=== PATIENT | male | born 1985 | race Caucasian/White ===

== ENCOUNTER 2019-01-10 09:54 | Emergency (ER) | payer SELFPAY ==
[~2019-01-10] VITALS: Ht 167.6 cm; Wt 102.7 kg
[2019-01-10] MEDS ORDERED: DiphenhydrAMINE HCL 50 MG/ML VIAL IVP ONE (10:30)
[2019-01-10] MEDS ORDERED: METOCLOPRAMIDE HCL 5 MG/ML 2 ML VIAL IVP ONE (10:30)
[2019-01-10] MEDS ORDERED: KETOROLAC TROMETHAMINE 30 MG/ML VIAL IVP ONE (10:30)
[2019-01-10] MEDS ORDERED: SODIUM CHLORIDE 0.9% 1,000 ML IV ONE (10:30)
[2019-01-10 11:15] VITALS: BP 109/70
== END 2019-01-10 11:43 | disposition home or self-care (01) ==
LOC: EMS 09:56
DX: R51 Headache (principal); R10.13 Epigastric pain; F17.210 Nicotine dependence, cigarettes, uncomplicated; F12.90 Cannabis use, unspecified, uncomplicated
CPT/HCPCS: 96374; 96375; 99283; 99406; J1200; J1885; J2765; J7030

== ENCOUNTER 2020-03-09 03:39 | Emergency (ER) | payer MEDICAID ==
[~2020-03-09] VITALS: Ht 167.6 cm; Wt 95.5 kg
[2020-03-09] MEDS ORDERED: SODIUM CHLORIDE 0.9% 1,000 ML IV ONE (04:17)
[2020-03-09] MEDS ORDERED: ONDANSETRON HCL 4 MG/2 ML VIAL IVP ONE (04:30)
[2020-03-09 04:39] LABS: BASOPHILS % (AUTO) 1.1 % (0.0-2.0); EOSINOPHILS % (AUTO) 1.6 % (1.0-6.0); HEMATOCRIT 46.3 % (41-53); HEMOGLOBIN 16.2 g/dL (13.5-17.5); LYMPHOCYTES # (AUTO) 1.7 K/uL (1.0-4.8); LYMPHOCYTES % (AUTO) 24.3 % (22.0-44.0); MEAN CORPUSCULAR HEMOGLOBIN 30.6 pg (26.0-34.0); MEAN CORPUSCULAR HGB CONC 34.9 G/dL (31.0-37.0); MEAN CORPUSCULAR VOLUME 88 fL (80-100); MONOCYTES # (AUTO) 0.6 K/uL (0.1-1.0); MONOCYTES % (AUTO) 8.2 % (2.0-9.0); NEUTROPHILS # (AUTO) 4.6 K/uL (1.8-7.7); NEUTROPHILS % (AUTO) 64.8 % (40.0-70.0); PLATELET COUNT (AUTO) 268 K/uL (150-450); RED BLOOD CELL COUNT(AUTO) 5.28 MIL/uL (4.50-5.90); RED CELL DISTRIBUTION WIDTH 12.9 % (11.5-14.5)
[2020-03-09 04:41] LABS: ANION GAP 7 mmol/L (8-16); CALCIUM, TOTAL 9.6 mg/dL (8.8-10.5); CARBON DIOXIDE 30 mmol/L (22-29); CHLORIDE 101 mmol/L (98-107); CREATININE 1.25 mg/dL (0.60-1.30); GLOMERULAR FILTR. RATE CALC > 60 mL/min (>60); GLUCOSE,RANDOM 115 mg/dL (70-110); POTASSIUM 3.9 mmol/L (3.5-5.1); SODIUM SERUM 138 mmol/L (136-145); UREA NITROGEN, BLOOD 18 mg/dL (7-18)
[2020-03-09 04:48] LABS: ALANINE AMINOTRANSFERASE 156 U/L (12-78); ALBUMIN 4.5 g/dL (3.4-5.0); ALKALINE PHOSPHATASE 67 U/L (46-116); ASPARTATE AMINOTRANSFERASE 65 U/L (15-37); BILIRUBIN,TOTAL 1.2 mg/dL (0.1-1.0); LIPASE 156 U/L (73-393); TOTAL PROTEIN, SERUM 8.5 g/dL (6.4-8.2)
[2020-03-09 04:58] LABS: APPEARANCE,URINE CLEAR (CLEAR); BILIRUBIN,URINE NEGATIVE (NEGATIVE); GLUCOSE, URINE (UA) NEGATIVE (NEGATIVE); KETONES,URINE NEGATIVE (NEGATIVE); LEUKOCYTE ESTERASE ,URINE NEGATIVE (NEGATIVE); NITRATE,URINE NEGATIVE (NEGATIVE); OCCULT BLOOD,URINE MODERATE (NEGATIVE); PH,URINE 5.5 (5.0-8.0); PROTEIN,URINE TRACE (NEGATIVE); UROBILINOGEN,URINE 0.2 mg/dL (<=1.0)
[2020-03-09 05:01] LABS: BACTERIA,URINE Rare /HPF (None Seen); SQUAMOUS EPITHELIAL CELL,UR Few /LPF (None Seen); WBC,URINE 0-2 /HPF (0-5)
[2020-03-09] MEDS ORDERED: PB/HYOSCY/ATR/SCOP/LIDO/MAALOX 55 ML BOTTLE PO ONE (05:15)
[2020-03-09] MEDS ORDERED: KETOROLAC TROMETHAMINE 30 MG/ML VIAL IVP ONE (06:00)
[2020-03-09 06:45] VITALS: BP 127/79
== END 2020-03-09 06:52 | disposition home or self-care (01) ==
LOC: EMS 03:39
DX: R10.11 Right upper quadrant pain (principal); R11.2 Nausea with vomiting, unspecified; Z87.891 Personal history of nicotine dependence
CPT/HCPCS: 36415; 76705; 80053; 81001; 83690; 85025; 96361; 96374; 96375; 99284; J1885; J2405; J7030

== ENCOUNTER 2023-02-12 07:55 | Emergency (ER) | payer MEDICAID ==
[~2023-02-12] VITALS: Ht 177.8 cm; Wt 100.0 kg
[2023-02-12 07:57] VITALS: TEMP 97.9
[2023-02-12 08:41] VITALS: BP 157/99; PULSE 78; RESP 18
[2023-02-14] MEDS ORDERED: ESOM20CA31 PO (08:02)
[2023-02-14] MEDS ORDERED: ONDA-104 PO (10:47)
== END 2023-02-12 10:03 | disposition left against medical advice (07) ==
LOC: EMS 07:57
DX: R10.12 Left upper quadrant pain (principal); R11.2 Nausea with vomiting, unspecified; Z53.21 Procedure and treatment not carried out due to patient leaving prior to being seen by health care provider
CPT/HCPCS: 99281; Z7502

== ENCOUNTER 2024-01-12 08:23 | Inpatient (IN) | payer MEDICAID ==
[~2024-01-12] VITALS: Ht 175.3 cm; Wt 114.0 kg
[~2024-01-12 08:23] MED LIST: CITA-108 PO; ERGO500093 PO; ESOM20CA31 PO; ONDA-104 PO; TRIA15CR49 TP
[2024-01-12] MEDS: FAMOTIDINE 20 MG/2 ML VIAL IVP ONE (08:46)
[2024-01-12] MEDS: KETOROLAC TROMETHAMINE 30 MG/ML VIAL IVP ONE (08:47)
[2024-01-12] MEDS: ONDANSETRON HCL 4 MG/2 ML VIAL IVP ONE (08:50)
[2024-01-12] MEDS: MORPHINE SULFATE 2 MG/ML SYRINGE IVP ONE ×2 (08:52→11:21)
[2024-01-12] MEDS: MAG HYDROX/ALUMINUM HYD/SIMETH 30 ML SUSPENSION UDCUP PO ONE (08:56)
[2024-01-12 08:57] LABS: BASOPHILS % (AUTO) 0.7 % (0.0-2.0); EOSINOPHILS % (AUTO) 0.9 % (1.0-6.0); HEMATOCRIT 48.6 % (41-53); HEMOGLOBIN 16.7 g/dL (13.5-17.5); LYMPHOCYTES # (AUTO) 1.9 K/uL (1.0-4.8); LYMPHOCYTES % (AUTO) 27.7 % (22.0-44.0); MEAN CORPUSCULAR HEMOGLOBIN 30.2 pg (26.0-34.0); MEAN CORPUSCULAR HGB CONC 34.4 G/dL (31.0-37.0); MEAN CORPUSCULAR VOLUME 88 fL (80-100); MONOCYTES # (AUTO) 0.5 K/uL (0.1-1.0); MONOCYTES % (AUTO) 6.8 % (2.0-9.0); NEUTROPHILS # (AUTO) 4.5 K/uL (1.8-7.7); NEUTROPHILS % (AUTO) 63.9 % (40.0-70.0); PLATELET COUNT (AUTO) 240 K/uL (150-450); RED BLOOD CELL COUNT(AUTO) 5.53 MIL/uL (4.50-5.90); RED CELL DISTRIBUTION WIDTH 12.9 % (11.5-14.5)
[2024-01-12] MEDS ORDERED: IOHEXOL 350 MG/ML 100 ML VIAL ONE (08:59)
[2024-01-12] MEDS ORDERED: SODIUM CHLORIDE 0.9% 100 ML ONE (08:59)
[2024-01-12 09:07] LABS: ANION GAP 15 mmol/L (8-16); CALCIUM, TOTAL 10.5 mg/dL (8.8-10.5); CARBON DIOXIDE 25 mmol/L (22-29); CHLORIDE 100 mmol/L (98-107); CREATININE 1.06 mg/dL (0.60-1.30); GLOMERULAR FILTR. RATE CALC > 60 mL/min (>60); GLUCOSE,RANDOM 138 mg/dL (70-110); POTASSIUM 3.3 mmol/L (3.5-5.1); SODIUM SERUM 140 mmol/L (136-145); UREA NITROGEN, BLOOD 19 mg/dL (7-18)
[2024-01-12 09:09] LABS: ALCOHOL, BLOOD (SERUM) < 3 mg/dL (0-10)
[2024-01-12 09:14] LABS: TROPONIN I-HIGH SENSITIVITY 5 ng/L (<76)
[2024-01-12 09:18] LABS: B-TYPE NATRIURETIC PEPTIDE < 5 pg/mL (0-100)
[2024-01-12 09:19] LABS: LACTIC ACID 3.3 mmol/L (0.4-2.0)
[2024-01-12] MEDS: SODIUM CHLORIDE 0.9% 1,000 ML IV ONE ×3 (09:29→12:39)
[2024-01-12 09:32] LABS: ALANINE AMINOTRANSFERASE 39 U/L (12-78); ALKALINE PHOSPHATASE 80 U/L (46-116); ASPARTATE AMINOTRANSFERASE 25 U/L (15-37); BILIRUBIN,TOTAL 1.4 mg/dL (0.1-1.0); CREATINE KINASE, TOTAL ONLY 147 U/L (39-308); LIPASE 63 U/L (16-77); TOTAL PROTEIN, SERUM 8.9 g/dL (6.4-8.2)
[2024-01-12 11:15] LABS: APPEARANCE,URINE CLEAR (CLEAR); BILIRUBIN,URINE NEGATIVE (NEGATIVE); COLOR,URINE COLORLESS (YELLOW); GLUCOSE, URINE (UA) NEGATIVE (NEGATIVE); KETONES,URINE 40-60 mg/dL (NEGATIVE); LEUKOCYTE ESTERASE ,URINE NEGATIVE (NEGATIVE); NITRATE,URINE NEGATIVE (NEGATIVE); OCCULT BLOOD,URINE SMALL (NEGATIVE); PH,URINE 6.5 (5.0-8.0); PH,URINE DRUG SCREEN 6.5 (5.0-8.0); PROTEIN,URINE NEGATIVE (NEGATIVE); SPECIFIC GRAVITIY, URINE 1.034 (1.003-1.030); UROBILINOGEN,URINE <=1.0 mg/dL (<=1.0)
[2024-01-12] MEDS: DiphenhydrAMINE HCL 50 MG/ML VIAL IVP ONE (11:21)
[2024-01-12] MEDS: METOCLOPRAMIDE HCL 5 MG/ML 2 ML VIAL IVP ONE (11:21)
[2024-01-12 11:22] LABS: ALCOHOL, URINE DRUG SCREEN NEGATIVE (NEGATIVE); AMPHET/METH SCREEN,URINE NEGATIVE (NEGATIVE); BARBITURATE SCREEN, URINE NEGATIVE (NEGATIVE); BENZODIAZEPINES SCREEN,URINE NEGATIVE (NEGATIVE); CANNABINOID SCREEN,URINE POSITIVE (NEGATIVE); COCAINE SCREEN,URINE NEGATIVE (NEGATIVE); METHADONE SCREEN, URINE NEGATIVE (NEGATIVE); OPIATE SCREEN,URINE POSITIVE (NEGATIVE); PHENCYCLIDINE SCREEN,URINE NEGATIVE (NEGATIVE)
[2024-01-12 12:06] LABS: BACTERIA,URINE None Seen /HPF (None Seen); RBC,URINE 0-2 /HPF (0-2); WBC,URINE None Seen /HPF (0-5)
[2024-01-12] MEDS ORDERED: MAGNESIUM HYDROXIDE SUSPENSION 30 ML UDCUP PO PRN (12:30)
[2024-01-12] MEDS ORDERED: FLUT16H NASAL (12:33)
[2024-01-12] MEDS ORDERED: BUSP10TA3 PO (12:33)
[2024-01-12] MEDS ORDERED: PRAZ1 PO (12:33)
[2024-01-12] MEDS: SODIUM CHLORIDE 0.9% 1,000 ML IV SCH (13:27)
[2024-01-12] MEDS: MetroNIDAZOLE 500 MG/NACL 100 ML IV ONE (13:41)
[2024-01-12] MEDS: CIPROFLOXACIN 400 MG/D5% WATER 200 ML IV ONE (14:43)
[2024-01-12] MEDS: ONDANSETRON HCL 4 MG/2 ML VIAL IVP PRN (16:33)
[2024-01-12] MEDS: LORazepam 2 MG/ML VIAL IVP PRN (18:26)
[2024-01-12] MEDS: ACETAMINOPHEN 325 MG TABLET PO PRN (18:26)
[2024-01-12] MEDS: POTASSIUM CHLORIDE 20 MEQ ER TABLET PO PRN (22:25)
[2024-01-13] MEDS: METOCLOPRAMIDE HCL 5 MG/ML 2 ML VIAL IVP ONE (01:04)
[2024-01-13] MEDS ORDERED: PANTOPRAZOLE SODIUM 40 MG/VIAL IVP ONE (06:15)
[2024-01-13 06:27] VITALS: BP 137/77; PULSE 61; RESP 18; TEMP 98.6
[2024-01-13] MEDS: PANTOPRAZOLE SODIUM 80 MG in SODIUM CHLORIDE 0.9% 100 ML IV SCH (07:21)
[2024-01-13 08:05] LABS: ALANINE AMINOTRANSFERASE 31 U/L (12-78); ALBUMIN 4.5 g/dL (3.4-5.0); ALKALINE PHOSPHATASE 68 U/L (46-116); ANION GAP 10 mmol/L (8-16); ASPARTATE AMINOTRANSFERASE 18 U/L (15-37); CALCIUM, TOTAL 9.1 mg/dL (8.8-10.5); CARBON DIOXIDE 30 mmol/L (22-29); CHLORIDE 97 mmol/L (98-107); CREATININE 0.88 mg/dL (0.60-1.30); GLOMERULAR FILTR. RATE CALC > 60 mL/min (>60); GLUCOSE,RANDOM 129 mg/dL (70-110); SODIUM SERUM 137 mmol/L (136-145); TOTAL PROTEIN, SERUM 8.2 g/dL (6.4-8.2); UREA NITROGEN, BLOOD 11 mg/dL (7-18)
[2024-01-13 08:23] VITALS: BP 116/70; PULSE 79; RESP 18; TEMP 98.4
[2024-01-13] MEDS: POTASSIUM CHL 10 MEQ/WATER 50 ML IV PRN (08:35)
[2024-01-13] MEDS ORDERED: PANTOPRAZOLE SODIUM 40 MG/VIAL IVP SCH (09:00)
[2024-01-13] MEDS: PANTOPRAZOLE SODIUM 40 MG/VIAL IVP SCH (10:25)
[2024-01-13 11:55] VITALS: BP 138/69; PULSE 57; RESP 17; TEMP 97.6
[2024-01-13 16:12] VITALS: BP 140/91; PULSE 57; RESP 18; TEMP 98.7
[2024-01-13 19:09] VITALS: BP 145/67; PULSE 55; RESP 18; TEMP 98.4
[2024-01-14 05:44] VITALS: BP 135/88; PULSE 60; RESP 19; TEMP 98.2
[2024-01-14 07:34] LABS: ANION GAP 9 mmol/L (8-16); CALCIUM, TOTAL 9.5 mg/dL (8.8-10.5); CARBON DIOXIDE 29 mmol/L (22-29); CHLORIDE 99 mmol/L (98-107); CREATININE 0.97 mg/dL (0.60-1.30); GLOMERULAR FILTR. RATE CALC > 60 mL/min (>60); GLUCOSE,RANDOM 104 mg/dL (70-110); POTASSIUM 3.2 mmol/L (3.5-5.1); SODIUM SERUM 137 mmol/L (136-145); UREA NITROGEN, BLOOD 15 mg/dL (7-18)
[2024-01-14 07:50] LABS: BASOPHILS % (AUTO) 0.5 % (0.0-2.0); EOSINOPHILS % (AUTO) 0.1 % (1.0-6.0); HEMATOCRIT 48.1 % (41-53); HEMOGLOBIN 16.8 g/dL (13.5-17.5); LYMPHOCYTES # (AUTO) 2.5 K/uL (1.0-4.8); LYMPHOCYTES % (AUTO) 23.7 % (22.0-44.0); MEAN CORPUSCULAR HEMOGLOBIN 30.2 pg (26.0-34.0); MEAN CORPUSCULAR HGB CONC 34.8 G/dL (31.0-37.0); MEAN CORPUSCULAR VOLUME 87 fL (80-100); MONOCYTES # (AUTO) 0.9 K/uL (0.1-1.0); MONOCYTES % (AUTO) 8.3 % (2.0-9.0); NEUTROPHILS # (AUTO) 7.1 K/uL (1.8-7.7); NEUTROPHILS % (AUTO) 67.4 % (40.0-70.0); PLATELET COUNT (AUTO) 274 K/uL (150-450); RED BLOOD CELL COUNT(AUTO) 5.54 MIL/uL (4.50-5.90); RED CELL DISTRIBUTION WIDTH 13.1 % (11.5-14.5); WHITE BLOOD COUNT (AUTO) 10.5 K/uL (4.5-11.0)
[2024-01-14 08:07] VITALS: BP 140/80; PULSE 57; RESP 18; TEMP 98.7
[2024-01-14] MEDS: METOCLOPRAMIDE HCL 5 MG/ML 2 ML VIAL IVP SCH (09:37)
[2024-01-14] MEDS: MetroNIDAZOLE 500 MG TABLET PO SCH (09:38)
[2024-01-14] MEDS ORDERED: SODIUM CHLORIDE 0.9% 250 ML IV ONE (10:02)
[2024-01-14] MEDS: MORPHINE SULFATE 2 MG/ML SYRINGE IVP PRN (10:18)
[2024-01-14 16:14] VITALS: BP 152/89; PULSE 52; RESP 20; TEMP 98.5
[2024-01-14 20:00] VITALS: BP 126/70; PULSE 55; RESP 20; TEMP 98.8
[2024-01-14] MEDS: ZOLPIDEM TARTRATE 5 MG TABLET PO PRN (20:10)
[2024-01-15 04:11] VITALS: BP 106/75; PULSE 59; RESP 18; TEMP 98.1
[2024-01-15 07:02] LABS: ANION GAP 9 mmol/L (8-16); CALCIUM, TOTAL 9.3 mg/dL (8.8-10.5); CARBON DIOXIDE 30 mmol/L (22-29); CHLORIDE 96 mmol/L (98-107); CREATININE 1.19 mg/dL (0.60-1.30); GLOMERULAR FILTR. RATE CALC > 60 mL/min (>60); GLUCOSE,RANDOM 134 mg/dL (70-110); POTASSIUM 3.3 mmol/L (3.5-5.1); SODIUM SERUM 135 mmol/L (136-145); UREA NITROGEN, BLOOD 19 mg/dL (7-18)
[2024-01-15 07:03] LABS: BASOPHILS % (AUTO) 0.7 % (0.0-2.0); EOSINOPHILS % (AUTO) 0.6 % (1.0-6.0); HEMATOCRIT 48.1 % (41-53); HEMOGLOBIN 16.5 g/dL (13.5-17.5); LYMPHOCYTES # (AUTO) 3.1 K/uL (1.0-4.8); MEAN CORPUSCULAR HGB CONC 34.2 G/dL (31.0-37.0); MEAN CORPUSCULAR VOLUME 88 fL (80-100); MONOCYTES # (AUTO) 0.7 K/uL (0.1-1.0); MONOCYTES % (AUTO) 7.7 % (2.0-9.0); PLATELET COUNT (AUTO) 285 K/uL (150-450); RED BLOOD CELL COUNT(AUTO) 5.48 MIL/uL (4.50-5.90); RED CELL DISTRIBUTION WIDTH 12.9 % (11.5-14.5); WHITE BLOOD COUNT (AUTO) 8.9 K/uL (4.5-11.0)
[2024-01-15 07:38] VITALS: BP 144/94; PULSE 51; RESP 19; TEMP 98.2
[2024-01-15] MEDS ORDERED: PANT-31 PO (11:44)
[2024-01-15] MEDS ORDERED: METO5TAB95 PO (11:44)
[2024-01-15] MEDS ORDERED: ONDANSETRON HCL 4 MG/2 ML VIAL IVP ONE (12:30)
[2024-01-15] MEDS: BusPIRone HCL 10 MG TABLET PO SCH (13:07)
[2024-01-15] MEDS: PIPERACILLIN/TAZO 3.375 GM/D5W 50 ML IV SCH (13:46)
[2024-01-15 15:37] VITALS: BP 106/84; PULSE 64; RESP 19; TEMP 98.4
[2024-01-15 19:49] VITALS: BP 125/67; PULSE 82; RESP 19; TEMP 97.5
[2024-01-15 20:15] VITALS: BP 116/64; PULSE 58; RESP 18; TEMP 98.1
[2024-01-15] MEDS: PRAZOSIN HCL 1 MG CAPSULE PO SCH (21:00)
[2024-01-16 05:03] VITALS: BP 131/65; PULSE 70; RESP 18; TEMP 98.1
[2024-01-16] MEDS ORDERED: LIDOCAINE/PF 2% 5 ML VIAL ONE (06:22)
[2024-01-16] MEDS ORDERED: PROPOFOL 1% 20 ML VIAL IVP ONE (06:22)
[2024-01-16 06:47] LABS: BASOPHILS % (AUTO) 0.6 % (0.0-2.0); EOSINOPHILS % (AUTO) 1.1 % (1.0-6.0); HEMATOCRIT 45.6 % (41-53); HEMOGLOBIN 16.2 g/dL (13.5-17.5); LYMPHOCYTES # (AUTO) 2.6 K/uL (1.0-4.8); LYMPHOCYTES % (AUTO) 31.9 % (22.0-44.0); MEAN CORPUSCULAR HEMOGLOBIN 30.6 pg (26.0-34.0); MEAN CORPUSCULAR HGB CONC 35.5 G/dL (31.0-37.0); MEAN CORPUSCULAR VOLUME 86 fL (80-100); MONOCYTES # (AUTO) 0.8 K/uL (0.1-1.0); MONOCYTES % (AUTO) 10.2 % (2.0-9.0); NEUTROPHILS # (AUTO) 4.6 K/uL (1.8-7.7); NEUTROPHILS % (AUTO) 56.2 % (40.0-70.0); PLATELET COUNT (AUTO) 277 K/uL (150-450); RED BLOOD CELL COUNT(AUTO) 5.29 MIL/uL (4.50-5.90); RED CELL DISTRIBUTION WIDTH 12.7 % (11.5-14.5); WHITE BLOOD COUNT (AUTO) 8.1 K/uL (4.5-11.0)
[2024-01-16 07:01] LABS: ANION GAP 8 mmol/L (8-16); CALCIUM, TOTAL 9.3 mg/dL (8.8-10.5); CARBON DIOXIDE 30 mmol/L (22-29); CHLORIDE 99 mmol/L (98-107); CREATININE 1.14 mg/dL (0.60-1.30); GLOMERULAR FILTR. RATE CALC > 60 mL/min (>60); GLUCOSE,RANDOM 102 mg/dL (70-110); POTASSIUM 3.7 mmol/L (3.5-5.1); SODIUM SERUM 137 mmol/L (136-145); UREA NITROGEN, BLOOD 16 mg/dL (7-18)
[2024-01-16 07:50] VITALS: BP 103/76; PULSE 55; RESP 18; TEMP 98.1
[2024-01-16] MEDS ORDERED: SODIUM CHLORIDE 0.9% 1,000 ML ONE (10:28)
[2024-01-16] MEDS: SODIUM CHLORIDE 0.9% 1,000 ML IV ONE (14:21)
[2024-01-16 20:01] VITALS: BP 101/67; PULSE 78; RESP 18; TEMP 98.7
[2024-01-17 03:04] VITALS: BP 101/62; PULSE 61; RESP 18; TEMP 98.3
[2024-01-17 06:49] LABS: BASOPHILS % (AUTO) 0.9 % (0.0-2.0); EOSINOPHILS % (AUTO) 2.5 % (1.0-6.0); HEMATOCRIT 44.9 % (41-53); HEMOGLOBIN 15.8 g/dL (13.5-17.5); LYMPHOCYTES # (AUTO) 2.8 K/uL (1.0-4.8); MEAN CORPUSCULAR HEMOGLOBIN 30.5 pg (26.0-34.0); MEAN CORPUSCULAR HGB CONC 35.1 G/dL (31.0-37.0); MEAN CORPUSCULAR VOLUME 87 fL (80-100); MONOCYTES # (AUTO) 0.9 K/uL (0.1-1.0); MONOCYTES % (AUTO) 10.7 % (2.0-9.0); NEUTROPHILS # (AUTO) 4.3 K/uL (1.8-7.7); NEUTROPHILS % (AUTO) 51.9 % (40.0-70.0); PLATELET COUNT (AUTO) 235 K/uL (150-450); RED BLOOD CELL COUNT(AUTO) 5.17 MIL/uL (4.50-5.90); RED CELL DISTRIBUTION WIDTH 12.4 % (11.5-14.5); WHITE BLOOD COUNT (AUTO) 8.3 K/uL (4.5-11.0)
[2024-01-17 06:58] LABS: ANION GAP 9 mmol/L (8-16); CALCIUM, TOTAL 8.6 mg/dL (8.8-10.5); CARBON DIOXIDE 31 mmol/L (22-29); CHLORIDE 99 mmol/L (98-107); CREATININE 1.19 mg/dL (0.60-1.30); GLOMERULAR FILTR. RATE CALC > 60 mL/min (>60); GLUCOSE,RANDOM 111 mg/dL (70-110); POTASSIUM 3.6 mmol/L (3.5-5.1); SODIUM SERUM 139 mmol/L (136-145); UREA NITROGEN, BLOOD 17 mg/dL (7-18)
[2024-01-17 08:16] VITALS: BP 115/59; PULSE 64; RESP 19; TEMP 97.5
== END 2024-01-17 10:25 | disposition home or self-care (01) | DRG 241 ==
LOC: EMS 08:23 → EDH 12:28 → 6S 16:54
PROVIDERS: ADMIT Internal Medicine; ATTEND Internal Medicine
PROC: 0DJ08ZZ Inspection of Upper Intestinal Tract, Via Natural or Artificial Opening Endoscopic (ICD-10-PCS; principal; 2024-01-16 15:00)
DX: K29.70 Gastritis, unspecified, without bleeding (principal); A08.4 Viral intestinal infection, unspecified; R11.2 Nausea with vomiting, unspecified; E66.9 Obesity, unspecified; E87.6 Hypokalemia; F12.90 Cannabis use, unspecified, uncomplicated; K21.9 Gastro-esophageal reflux disease without esophagitis; K76.9 Liver disease, unspecified; K57.90 Diverticulosis of intestine, part unspecified, without perforation or abscess without bleeding; Z79.899 Other long term (current) drug therapy; Z68.37 Body mass index [BMI] 37.0-37.9, adult; Z87.891 Personal history of nicotine dependence
CPT/HCPCS: 71045; 74177; 76705; 80048; 80053; 80307; 81001; 82550; 83605; 83690; 83735; 83880; 84132; 84484; 85025; 87040; 88305; 88312; 88313; 93005; 99285; C9113; G0480; J0744; J1200; J1885; J2060; J2270; J2405; J2543; J2704; J2765; J3480; J3490; J7030; J7050; Q9967; 36415-L1; 36415-TC

== ENCOUNTER 2024-03-30 12:49 | Emergency (ER) | payer MEDICAID ==
[~2024-03-30] VITALS: Ht 170.2 cm; Wt 104.5 kg
[~2024-03-30 12:49] MED LIST changes: +BUSP10TA3 PO; +FLUT16H NASAL; +METO5TAB95 PO; -ONDA-104 PO; +PANT-31 PO; +PRAZ1 PO; -TRIA15CR49 TP
[2024-03-30 12:57] VITALS: BP 117/96; PULSE 110; RESP 18; TEMP 98.2; O2SAT 100
== END 2024-03-30 14:00 | disposition left against medical advice (07) ==
LOC: EMS 12:49
DX: S61.411A Laceration without foreign body of right hand, initial encounter (principal); Z53.21 Procedure and treatment not carried out due to patient leaving prior to being seen by health care provider; X99.0XXA Assault by sharp glass, initial encounter; Y93.89 Activity, other specified; Y92.89 Other specified places as the place of occurrence of the external cause; Y99.8 Other external cause status

== ENCOUNTER 2024-07-09 03:00 | Emergency (ER) | payer MEDICAID ==
[~2024-07-09] VITALS: Ht 170.2 cm; Wt 105.9 kg
[2024-07-09 03:27] VITALS: TEMP 98.2
[2024-07-09] MEDS: DiphenhydrAMINE HCL 25 MG CAPSULE PO ONE (03:55)
[2024-07-09] MEDS: PredniSONE 20 MG TABLET PO ONE (03:55)
[2024-07-09 04:09] LABS: ANION GAP 6 mmol/L (8-16); CALCIUM, TOTAL 9.1 mg/dL (8.8-10.5); CARBON DIOXIDE 28 mmol/L (22-29); CHLORIDE 103 mmol/L (98-107); CREATININE 0.96 mg/dL (0.60-1.30); GLOMERULAR FILTR. RATE CALC > 60 mL/min (>60); GLUCOSE,RANDOM 102 mg/dL (70-110); POTASSIUM 3.3 mmol/L (3.5-5.1); SODIUM SERUM 137 mmol/L (136-145); UREA NITROGEN, BLOOD 16 mg/dL (7-18)
[2024-07-09] MEDS ORDERED: PRED-554 PO (04:14)
[2024-07-09] MEDS ORDERED: EPIN0.3P3 IM (04:14)
[2024-07-09] MEDS ORDERED: DIPH-1243 PO (04:14)
[2024-07-09 04:20] LABS: HEMATOCRIT 46.1 % (41-53); LYMPHOCYTES # (AUTO) 2.2 K/uL (1.0-4.8); LYMPHOCYTES % (AUTO) 31.8 % (22.0-44.0); MEAN CORPUSCULAR HEMOGLOBIN 30.7 pg (26.0-34.0); MEAN CORPUSCULAR HGB CONC 34.7 G/dL (31.0-37.0); MEAN CORPUSCULAR VOLUME 88 fL (80-100); MONOCYTES # (AUTO) 0.6 K/uL (0.1-1.0); MONOCYTES % (AUTO) 8.8 % (2.0-9.0); NEUTROPHILS # (AUTO) 3.8 K/uL (1.8-7.7); NEUTROPHILS % (AUTO) 56.4 % (40.0-70.0); PLATELET COUNT (AUTO) 255 K/uL (150-450); RED BLOOD CELL COUNT(AUTO) 5.22 MIL/uL (4.50-5.90); RED CELL DISTRIBUTION WIDTH 12.8 % (11.5-14.5); WHITE BLOOD COUNT (AUTO) 6.8 K/uL (4.5-11.0)
[2024-07-09 04:58] VITALS: BP 131/78; PULSE 65; RESP 18; O2SAT 98
== END 2024-07-09 05:01 | disposition home or self-care (01) ==
LOC: EMS 03:01
DX: R60.0 Localized edema (principal); R20.2 Paresthesia of skin; F12.90 Cannabis use, unspecified, uncomplicated; Z79.899 Other long term (current) drug therapy
CPT/HCPCS: 99283; 80048; 85025; 36415; J7512

== ENCOUNTER 2025-01-29 18:19 | Emergency (ER) | payer MEDICAID ==
[~2025-01-29] VITALS: Ht 172.7 cm; Wt 104.5 kg
[~2025-01-29 18:19] MED LIST changes: +DIPH-1243 PO; +EPIN0.3P3 IM; +PRED-554 PO
[2025-01-29 18:22] VITALS: TEMP 98
[2025-01-29] MEDS ORDERED: MIRT7.5T11 PO (18:49)
[2025-01-29] MEDS ORDERED: BUSP30TA2 PO (18:49)
[2025-01-29] MEDS ORDERED: NAPR-1175 PO (18:49)
[2025-01-29] MEDS ORDERED: FAMO20 PO (18:49)
[2025-01-29 18:50] LABS: PLATELET COUNT (AUTO) 261 K/uL (150-450); RED BLOOD CELL COUNT(AUTO) 3.95 MIL/uL (4.50-5.90); RED CELL DISTRIBUTION WIDTH 13.4 % (11.5-14.5); WHITE BLOOD COUNT (AUTO) 7.7 K/uL (4.5-11.0)
[2025-01-29] MEDS: ONDANSETRON HCL 4 MG/2 ML VIAL IVP ONE (18:52)
[2025-01-29] MEDS: SODIUM CHLORIDE 0.9% 1,000 ML IV ONE (18:53)
[2025-01-29 18:59] LABS: CALCIUM, TOTAL 8.8 mg/dL (8.8-10.5); CREATININE 1.10 mg/dL (0.60-1.30); GLOMERULAR FILTR. RATE CALC > 60 mL/min (>60); GLUCOSE,RANDOM 101 mg/dL (70-110); SODIUM SERUM 141 mmol/L (136-145); UREA NITROGEN, BLOOD 15 mg/dL (7-18)
[2025-01-29] MEDS: OxyCODONE HCL/ACETAMINOPHEN 5-325 MG TABLET PO ONE (20:27)
[2025-01-29 21:15] VITALS: BP 125/71; PULSE 78; RESP 16; O2SAT 99
[2025-01-29] MEDS ORDERED: POLY119P3 PO (21:23)
[2025-01-29] MEDS ORDERED: OXYC-42 PO (21:23)
== END 2025-01-29 21:31 | disposition home or self-care (01) ==
LOC: EMS 18:19
DX: G89.18 Other acute postprocedural pain (principal); R10.84 Generalized abdominal pain; F12.90 Cannabis use, unspecified, uncomplicated; Z79.899 Other long term (current) drug therapy
CPT/HCPCS: 99283; 96374; 96361; 80048; 83690; 85025; 36415; J1171; J2405; J7030

== ENCOUNTER 2025-02-14 22:02 | Emergency (ER) | payer MEDICAID ==
[~2025-02-14] VITALS: Ht 170.2 cm; Wt 104.5 kg
[~2025-02-14 22:02] MED LIST changes: -BUSP10TA3 PO; +BUSP30TA2 PO; -DIPH-1243 PO; -ERGO500093 PO; -ESOM20CA31 PO; +FAMO20 PO; -METO5TAB95 PO; +MIRT7.5T11 PO; +NAPR-1175 PO; +OXYC-42 PO; -PANT-31 PO; +POLY119P3 PO; -PRAZ1 PO; -PRED-554 PO
[2025-02-14 23:59] VITALS: BP 138/85; PULSE 77; RESP 18; TEMP 98.1; O2SAT 99
[2025-02-15 01:05] LABS: PLATELET COUNT (AUTO) 308 K/uL (150-450); RED BLOOD CELL COUNT(AUTO) 4.50 MIL/uL (4.50-5.90); RED CELL DISTRIBUTION WIDTH 12.9 % (11.5-14.5); WHITE BLOOD COUNT (AUTO) 7.7 K/uL (4.5-11.0)
[2025-02-15 01:14] LABS: CALCIUM, TOTAL 8.4 mg/dL (8.8-10.5); CREATININE 0.98 mg/dL (0.60-1.30); GLOMERULAR FILTR. RATE CALC > 60 mL/min (>60); GLUCOSE,RANDOM 103 mg/dL (70-110); SODIUM SERUM 142 mmol/L (136-145); UREA NITROGEN, BLOOD 14 mg/dL (7-18)
[2025-02-15] MEDS: OxyCODONE HCL/ACETAMINOPHEN 5-325 MG TABLET PO ONE (01:26)
[2025-02-15] MEDS ORDERED: CEPH-558 PO (01:29)
== END 2025-02-15 01:34 | disposition home or self-care (01) ==
LOC: EMS 22:02
DX: L76.34 Postprocedural seroma of skin and subcutaneous tissue following other procedure (principal); F12.90 Cannabis use, unspecified, uncomplicated; Z87.11 Personal history of peptic ulcer disease; Z85.528 Personal history of other malignant neoplasm of kidney; Z79.899 Other long term (current) drug therapy
CPT/HCPCS: 80048; 85025; 99283